=== PATIENT | female | born 1965 | race Caucasian/White ===

== ENCOUNTER 2023-08-31 13:34 | Outpatient (CLI) | payer OTHER ==
--- NOTE | 2023-08-31 14:33 | SLEEP CARE CONSULTATION ---
Information from patient questionnaire entered by Veronica Bond. I have reviewed and concur with the information entered by Veronica Bond. This document represents the service I personally performed and the decisions made by me, Yuli Shah ARNP. History of Present Illness Service Date and Time: 08/31/2023 1334 Reason for Visit: New patient, Previously diagnosed sleep apnea, sleep apnea on CPAP therapy Chief Complaint: reports: Snoring, Excessive daytime sleepiness, Other (UPDATE SUPPLIES) Date of Onset: 8-10YRS Usual bedtime: 1030PM Time it takes to fall asleep: 15-20MIN Snores at night: Yes Observed to quit breathing while asleep: No Sleeps alone due to snoring: No Number of times waking at night: 1-2 Reasons for waking at night: reports: Other (UNKNOWN) Toss, Turn, or Twitch while sleeping: Yes Recalls having dreams: No Usually gets out of bed at: 530-7AM Feels refreshed in the morning: No Morning headache: Yes Sleepy or fatigued during the day: Yes Ever fallen asleep while driving: No Takes day naps: No Dreams during day naps: No Prior sleep studies: Yes Additional HPI information: NATALIA BUSTILLO was previously diagnosed to have unknown, AHI unknown, obstructive sleep apnea-hypopnea syndrome and comes in today to establish care for CPAP therapy. She says she thinks her AHI was around 110 which would bed extremely severe sleep apnea. She did not bring a copy of her last sleep study with her today. - Parasomnia Symptoms Ever been unable to move upon waking from sleep: No Walks in sleep: No Talks in sleep: No Ever acted out dreams in sleep: No Ever felt weak in the knees when startled or emotional: No Bothered by creepy, crawly, restless sensations in legs: No Problems with memory or concentration: Yes CPAP Compliance Data - Data Reviewed with Patient Average duration of nightly device use: 8 hours 7 minutes Compliance rate %: 99 (06/03/2023-08/31/2023) Current pressure setting (cmH2O): 13-15 Average residual AHI: 0.2 Central apnea: 0 Obstructive apnea: 0.1 Average large leak: 0.5 L/min Compliance data discussion: She has a ResMed Airsense 10 that is about 10 years old and giving her an error message that the motor has exceeded its life. She gets her supplies from [employer] and gets supplies regularly. She is using a full face mask, Gurdeep [place], small cushion. She does have a backup mask if needed. Subjective Patient concerns: reports: dry mouth, nose, throat. denies: aerophagia, mask discomfort, air blowing in eyes, mask leak noise, condensation in mask/hose, nasal congestion, epistaxis (dry mouth- may be oral venting) Observed to snore while using device: Yes (according to son, but is better) Current pressure setting perceived as: comfortable On therapy, patient: reports: sleeping better, awakening more refreshed, being more awake and alert during the day, more rested overall. denies: drowsiness while driving Initial [place] Sleepiness Scale score: 11 (08/31/23) Past Medical History Past Medical History: reports: Hypertension, Arthritis Social History The patient's occupation is a [employer]. Patient is and lives in . Have you smoked in the past 12 months: No Alcohol use: Yes Alcohol amount and frequency: 1-2 ONCE A MONTH Caffeine use: Yes Caffeine amount and frequency: 1 DAILY Family History Family history of sleep disordered breathing: Yes Family Hx Sleep Apnea: Father: Snoring, Sleep apnea - Treated, Sibling: Snoring, Sleep apnea - Treated Allergies and Home Medications Known drug allergies: No Drug allergies reviewed: Yes Home medication list reviewed: Yes (as listed) Allergy and home medication list: Allergies No Known Drug Allergies Allergy (Verified 08/31/23 13:45) Home Medications Aspirin [Aspirin EC] See Rx Instructions .ROUTE .COMPLEX 08/31/23 [History] Atorvastatin [Lipitor] See Rx Instructions .ROUTE .COMPLEX 08/31/23 [History] Biotin See Rx Instructions .ROUTE .COMPLEX 08/31/23 [History] Cholecalciferol [Vitamin D3] See Rx Instructions .ROUTE .COMPLEX 08/31/23 [History] Ginkgo Biloba Ehrhardt Extract [Ginkgo Biloba Extract] See Rx Instructions .ROUTE .COMPLEX 08/31/23 [History] Glucos Sul 2Kcl/MSM/Chond/C/Mn [Glucosamine Chondroitin Cap] See Rx Instructions .ROUTE .COMPLEX 08/31/23 [History] Lisinopril [Zestril] See Rx Instructions .ROUTE .COMPLEX 08/31/23 [History] Metoprolol Succinate [Toprol Xl] See Rx Instructions .ROUTE .COMPLEX 08/31/23 [History] Multivit-Min/Iron/Folic/Lutein [Multivitamin Women 50 Plus Tab] See Rx Instructions .ROUTE .COMPLEX 08/31/23 [History] Review of Systems Weight gain over past 5 years: 60 Cardiovascular: reports: high blood pressure, palpitations Neurological: denies: headaches Psychiatric: denies: anxiety, depression Ear/Nose/Throat: reports: dry mouth/throat, wisdom teeth removed Musculoskeletal: reports: joint pain Physical Exam Vital signs obtained and entered by: VERONICA Casanova MA Blood Pressure: 169/92 (LEFT ARM) Cuff size: long Heart Rate: 66 O2 Saturation: 99 Height: 5 ft 5 in Weight: 256 lb 3.2 oz Body Mass Index: 42.6 BMI Classification: Morbidly Obese Neck circumference: 16.5 Heart: regular rate and rhythm Lungs: clear bilaterally Impression and Plan 1. Obstructive Sleep Apnea-Hypopnea Syndrome, unknown, with good treatment compliance and good apnea control. On CPAP therapy, the patient has better sleep quality and is more rested overall. She has a ResMed Airsense 10 that is giving an error message about the machine motor exceeding life. The patients CPAP is over 5 years old and of reasonable use. Thus, the CPAP will be updated. A DWO prescription will be made. Compliance guidelines for new device and follow up discussed. We do not have a copy of last sleep study but it has been requested. Once I have a copy of sleep study the supply prescription will be updated. If unable to get a copy of sleep study then will order a new sleep study to verify diagnosis and severity. Patient's apnea severity and rationale for treatment to reduce apnea, improve sleep quality and reduce cardiovascular and cerebrovascular events was reviewed. I also reviewed the benefit of consistent device use of CPAP for hypertension. 2. Obesity, unspecified. Currently patients BMI is 42.6. Obesity increases the risk of apnea, CPAP pressure requirements and overall health risks especially cardiovascular and diabetes. Thus patient is advised to lose weight. * Continue auto CPAP pressure at 13-15 cmH2O * Order sleep study if unable to obtain copy of last sleep study * Update machine * Update supply prescription * Notify me if snoring with mask or feeling that the pressure is too much or too little * Attempt to lose weight * Call this office if any problems using CPAP * Return for follow up one month after obtaining new CPAP, or sooner if concerns arise Counseling Topics: Spare mask, Weight loss health impact Prescriptions: Device supplies Follow up with Sleep Care in: other (compliance visit) Visit Type: In Office Time Spent with Patient (minutes): 32 Provider Statement: I spent 100% of the Face to Face Visit with the patient with greater than 50% spent counseling the patient and coordination of care.
[2023-08-31 14:37] VITALS: BP 169/92; O2SAT 99
== END 2023-08-31 13:35 | disposition home or self-care (01) ==
LOC: SC 13:34
PROVIDERS: ATTEND Nurse Practitioner Family
DX: G47.33 Obstructive sleep apnea (adult) (pediatric) (principal); E66.01 Morbid (severe) obesity due to excess calories; Z68.41 Body mass index [BMI] 40.0-44.9, adult
CPT/HCPCS: 99203; 99212